=== PATIENT | female | born 1990 | race Caucasian/White ===

== ENCOUNTER → 2018-03-12 16:20 | Outpatient (CLI) | payer OTHER, SELFPAY | PROVIDERS: Referring Provider Otolaryngology; Visit Provider Otolaryngology | DX: J02.9 Acute pharyngitis, unspecified (principal) | CPT/HCPCS: 87070 ==

== ENCOUNTER → 2018-05-29 10:02 | Outpatient (CLI) | payer OTHER, SELFPAY ==
--- NOTE | 2018-05-29 10:16 | US_ITS ---
STUDY: ABDOMINAL ULTRASOUND REASON FOR EXAM: Female, 28 years old. Left abdominal pain TECHNIQUE: Transverse and longitudinal imaging of the abdomen was obtained using real-time ultrasound. COMPARISON: None. FINDINGS: Liver: Right lobe 16 cm. Increased echogenicity. Normal portal venous flow. Hypoechoic lesion in the left lobe measuring 11.5 x 7.8 x 12.5 mm. Portal vein measurement: Gallbladder and biliary system: Normal size. Wall thickness 2-3 mm. Negative sonographic Yancey's sign. No demonstrated pericholecystic fluid. No luminal abnormalities. CBD 2-3 mm. Pancreas: Unremarkable. No demonstrated mass. Right Kidney: 10.2 cm. Cortex 1.1 cm. No demonstrated mass. No dilatation of collecting system. Left Kidney: 10.1 cm. Cortex 1.6 cm. No demonstrated mass. No dilatation of collecting system. Spleen: 11 cm. There is an adjacent splenule measuring 1.6 cm. A few hypoechoic areas are seen in the spleen measuring 1 cm or less. Aorta: Normal in appearance. I.V.C.: Normal in appearance. No demonstrated free fluid. US/Abdomen Complete IMPRESSION: There is probable fatty infiltration of the liver. There is an indeterminate lesion in the left lobe measuring 12 mm in size, possible hemangioma. There are indeterminate small lesions in the spleen measuring 1 cm or less. These may represent cysts or hemangiomas. Consider a CT with liver mass protocol for further characterization of the liver and spleen. Electronically Signed: Araceli Monteiro MD at 14:02 EST Tel Direct: [phone], Service support ,
--- NOTE | 2018-05-29 10:56 | US_ITS ---
STUDY: ULTRASOUND OF THE FEMALE PELVIS REASON FOR EXAM: Female, 28 years old. Left pelvic pain LMP: May 14, 2018 TECHNIQUE: Transverse and longitudinal imaging of the pelvis was obtained transvaginally using real-time ultrasound. COMPARISON: None. FINDINGS: Uterus: Anteverted. 6.0 x 2.6 x 4.2 cm. No demonstrated myometrial mass. Unremarkable cervix. Endometrium: 2-3 mm in thickness. Hyperechoic. No demonstrated endometrial mass. I.U.D. - The patient does not have an I.U.D. Right ovary/adnexa: Visualized. 2.7 x 1.5 x 2.0 cm. Follicles present. Normal arterial and normal venous vascularity. No visualized adnexal mass or complex lesion. Left ovary/adnexa: Visualized. 2.0 x 1.1 x 1.6 cm. Follicles present. Normal arterial and normal venous vascularity. No visualized adnexal mass or complex lesion. Cul-de-sac: There is no fluid in the cul-de-sac. Urinary bladder was not imaged. US/Transvaginal Non- IMPRESSION: There are no significant abnormalities on the pelvic ultrasound. Electronically Signed: Araceli Monetiro MD at 12:23 EST Tel Direct: [phone], Service support ,
== END ==
DX: R10.9 Unspecified abdominal pain (principal)
CPT/HCPCS: 76700; 76830; 93976